=== PATIENT | male | born 1985 | race Two or more races ===

== ENCOUNTER 2024-02-07 14:03 | Inpatient (IN) | payer MEDICAID, OTHER ==
[~2024-02-07] VITALS: Ht 175.3 cm; Wt 156.5 kg
[2024-02-07 14:51] LABS: Basophils # (auto) 0 10 ^3/uL (0-0.2); Basophils % (auto) 0.5 % (0.0-2.0); Eosinophils # (auto) 0.3 10 ^3/uL (0-0.8); Eosinophils % (auto) 4.7 % (0.0-7.0); Hematocrit 48.1 % (41.0-53.0); Hemoglobin 16.8 g/dL (13.5-17.5); Lymphocytes # (auto) 1.8 10 ^3/uL (0.4-5.4); Lymphocytes % (auto) 26.2 % (10.0-50.0); Mean Corpuscular Hemoglobin 31.1 pg (28.0-32.0); Mean Corpuscular Volume 88.8 fL (80.0-100.0); Monocytes # (auto) 0.6 10 ^3/uL (0-1.3); Monocytes % (auto) 8.5 % (0.0-12.0); Neutrophils # (auto) 4.2 10 ^3/uL (1.6-8.6); Neutrophils % (auto) 60.1 % (37.0-80.0); Nucleated Red Blood Cells % 0.1 %; Platelet Count (auto) 227 10^3/uL (140-450); Red Blood Cells 5.42 10^6/uL (4.5-5.90); Red Cell Distribution Width 13.8 % (11.8-14.3)
[2024-02-07 15:10] LABS: Alanine Aminotransferase 44 U/L (7-40); Albumin 4.9 g/dL (3.2-4.8); Alkaline Phosphatase 64 U/L (46-116); Anion Gap 7 (5-15); Aspartate Aminotransferase 22 U/L (13-40); Bilirubin, Total 0.7 mg/dL (0.2-1.0); Blood Urea Nitrogen 16 mg/dL (9-23); Calcium 9.8 mg/dL (8.7-10.4); Carbon Dioxide 27 mmol/L (20-31); Chloride 108 mmol/L (98-107); Glucose 90 mg/dL (74-106); Lipase 54 U/L (12-53); Potassium 4.6 mmol/L (3.5-5.1); Sodium 142 mmol/L (136-145); Total Protein 7.8 g/dL (5.7-8.2)
[2024-02-07 15:35] VITALS: PULSE 78; RESP 16; O2SAT 99
[2024-02-07] MEDS: SODIUM CHLORIDE 0.9% 1,000 ML IVB ONE (16:20)
[2024-02-07] MEDS ORDERED: MORP1TAB12 PO (17:45)
[2024-02-07] MEDS ORDERED: METH-1182 PO (17:45)
[2024-02-07] MEDS ORDERED: DOCUSATE SOD 100 MG CAP PO PRN (17:45)
[2024-02-07] MEDS ORDERED: NITROGLYCERIN 0.4 MG SL TAB SL PRN (17:45)
[2024-02-07] MEDS ORDERED: ACETAMINOPHEN 325 MG TAB PO PRN (17:45)
[2024-02-07] MEDS: ONDANSETRON HCL 4 MG/2 ML VIAL IV PRN (17:50)
[2024-02-07] MEDS: SODIUM CHLORIDE 0.9% 1,000 ML IV SCH (17:50)
[2024-02-07] MEDS: MORPHINE SULFATE INJ 2 MG/ml SYRG IV PRN (17:53)
[2024-02-07] MEDS ORDERED: HYDR-4902 PO (19:42)
[2024-02-07] MEDS ORDERED: HYDROcodone-ACET 5/325MG TAB PO PRN (19:45)
[2024-02-07] MEDS: MORPHINE SULF 15mg ER tab PO SCH (21:24)
[2024-02-07 22:28] LABS: Urine Bacteria None Seen /hpf (None Seen)
[2024-02-07 22:47] LABS: Urine Blood Negative /uL (Negative); Urine Clarity Turbid (Clear); Urine Color Yellow (Yellow); Urine Mucus FEW (None Seen); Urine Protein, UAD TRACE (Negative); Urine Specific Gravity 1.028 (1.001-1.035); Urine Urobilinogen Normal (Negative); Urine WBC 5 /hpf (0 - 3)
[2024-02-07 22:54] LABS: COVID19 ANTIGEN SOFIA FIA NEGATIVE (NEGATIVE)
[2024-02-07] MEDS: METHOCARBAMOL 500 MG TAB PO SCH (23:17)
[2024-02-08] VITALS (8 sets, daily range): BP systolic 114–154; BP diastolic 63–94; PULSE 69–87; RESP 16–19; TEMP 97.3–98.1; O2SAT 94–97
[2024-02-08] MEDS: HYDROcodone-ACET 5/325MG TAB PO PRN (05:16)
[2024-02-08 10:04] LABS: Basophils # (auto) 0 10 ^3/uL (0-0.2); Basophils % (auto) 0.6 % (0.0-2.0); Eosinophils # (auto) 0.3 10 ^3/uL (0-0.8); Eosinophils % (auto) 5.8 % (0.0-7.0); Hematocrit 42.2 % (41.0-53.0); Hemoglobin 14.7 g/dL (13.5-17.5); Lymphocytes % (auto) 36.5 % (10.0-50.0); Mean Corpuscular Hemoglobin 31.2 pg (28.0-32.0); Mean Corpuscular Hgb Conc. 34.8 g/dL (32.0-36.0); Mean Corpuscular Volume 89.5 fL (80.0-100.0); Monocytes # (auto) 0.4 10 ^3/uL (0-1.3); Neutrophils # (auto) 2.7 10 ^3/uL (1.6-8.6); Neutrophils % (auto) 49.1 % (37.0-80.0); Nucleated Red Blood Cells % 0.2 %; Platelet Count (auto) 170 10^3/uL (140-450); Red Blood Cells 4.71 10^6/uL (4.5-5.90); Red Cell Distribution Width 13.7 % (11.8-14.3); White Blood Cell 5.5 10^3/uL (4.4-10.8)
[2024-02-08 10:18] LABS: Alanine Aminotransferase 32 U/L (7-40); Alkaline Phosphatase 51 U/L (46-116); Anion Gap 6 (5-15); Aspartate Aminotransferase 16 U/L (13-40); BUN/Creatinine Ratio 14.1 (10.0-20.0); Blood Urea Nitrogen 13 mg/dL (9-23); Calcium 8.7 mg/dL (8.7-10.4); Carbon Dioxide 26 mmol/L (20-31); Chloride 111 mmol/L (98-107); Glucose 117 mg/dL (74-106); Potassium 3.5 mmol/L (3.5-5.1); Sodium 143 mmol/L (136-145)
[2024-02-08 10:19] LABS: Albumin 3.7 g/dL (3.2-4.8); Bilirubin, Total 0.5 mg/dL (0.2-1.0); Total Protein 6.3 g/dL (5.7-8.2)
[2024-02-08] MEDS: KETOROLAC TROMETH 30 MG/ML 1ML VIAL IV ONE (23:51)
[2024-02-09 01:00] VITALS: BP 135/85; PULSE 69; RESP 18; TEMP 98.1; O2SAT 96
[2024-02-09 09:00] VITALS: BP 112/70; PULSE 74; RESP 20; TEMP 98.2; O2SAT 96
[2024-02-09] MEDS: METOCLOPRAMIDE HCL 5MG/ml INJ 2ml VIAL IV ONE (11:07)
[2024-02-09] MEDS: MORPHINE SULFATE 4 MG/ML SYR/VIAL IV ONE (11:07)
[2024-02-09 12:57] VITALS: BP 125/75; PULSE 61; RESP 18; TEMP 98; O2SAT 95
[2024-02-09] MEDS ORDERED: METO5TAB67 PO (13:44)
== END 2024-02-09 14:01 | disposition home or self-care (01) | DRG 249 ==
LOC: ER 14:03 → OVERFLOW 17:45 → WEST WING 23:57
PROVIDERS: ADMIT Nurse Practitioner Family; ATTEND Student in an Organized Health Care Education/Training Program
DX: K52.9 Noninfective gastroenteritis and colitis, unspecified (principal); E27.8 Other specified disorders of adrenal gland; K76.0 Fatty (change of) liver, not elsewhere classified; K80.20 Calculus of gallbladder without cholecystitis without obstruction; Z68.43 Body mass index [BMI] 50.0-59.9, adult; E66.9 Obesity, unspecified; G89.29 Other chronic pain; E86.0 Dehydration; Z20.822 Contact with and (suspected) exposure to COVID-19; I10 Essential (primary) hypertension; R80.9 Proteinuria, unspecified
CPT/HCPCS: 36415; 74176; 80053; 81001; 83690; 85025; 87426; G0378; J1885; J2405